=== PATIENT | male | born 1980 | race Caucasian/White ===

== ENCOUNTER 2017-04-29 21:52 | Emergency (ER) | payer OTHER ==
[2017-04-29 22:07] VITALS: RESP 18
[2017-04-29] MEDS ORDERED: DIPH,PERTUS(ACELL)TETVAC-LF 0.5 ML VIAL IM ONE (22:22)
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
--- NOTE | 2017-04-29 22:48 | CT ---
EXAM: CT Head Without Intravenous Contrast CLINICAL HISTORY: Pain TECHNIQUE: Axial computed tomography images of the head/brain without intravenous contrast. CTDI is 60.3 mGy and DLP is 1126.5 mGy-cm. This CT exam was performed using one or more of the following dose reduction techniques: automated exposure control, adjustment of the mA and/or kV according to patient size, and/or use of iterative reconstruction technique. Coronal and sagittal reconstructions are performed. COMPARISON: No relevant prior studies available. FINDINGS: Brain: Unremarkable. No hemorrhage. No significant white matter disease. No edema. Ventricles: Unremarkable. No ventriculomegaly. Bones/joints: Comminuted fracture of comminuted bilateral nasal bone fracture, minimally displaced on the left. Soft tissues: Moderate amount of soft tissue swelling over bilateral maxilla, mixed with moderate amount of subcutaneous gas. Sinuses: Near complete opacification of visualized maxillary sinuses. Moderate amount of opacification of bilateral ethmoid air cells. Mastoid air cells: Unremarkable as visualized. No mastoid effusion. Orbits: Small amount of anterior left intraorbital gas. IMPRESSION: 1. No intracranial hemorrhage. 2. Comminuted fracture of comminuted bilateral nasal bone fracture, minimally displaced on the left. 3. Moderate amount of soft tissue swelling over bilateral maxilla, mixed with moderate amount of subcutaneous gas.
--- NOTE | 2017-04-29 22:57 | XR ---
EXAM: XR Mandible Complete, 4 or More Views CLINICAL HISTORY: Reason: Pain TECHNIQUE: Frontal, oblique and lateral views of the mandible. COMPARISON: No relevant prior studies available. FINDINGS: Dental: teeth are absent. Bones/joints: Suspect fracture of bilateral angles of the mandible. Soft tissues: Soft tissue emphysema over bilateral maxilla and left orbit are better seen on CT head from the same day. Sinuses: Opacification in bilateral maxillary sinuses. IMPRESSION: Suspect fracture of bilateral angles of the mandible. CT facial bones may help to further evaluate if clinically indicated.
--- NOTE | 2017-04-29 22:58 | XR ---
EXAM: XR Chest, 2 Views CLINICAL HISTORY: Reason: Pain TECHNIQUE: Frontal and lateral views of the chest. COMPARISON: No relevant prior studies available. FINDINGS: Lungs: Unremarkable. No consolidation. Pleural space: Unremarkable. No pneumothorax. Heart: Unremarkable. No cardiomegaly. Mediastinum: Unremarkable. Bones/joints: Mild anterior wedge compression defect of the lower thoracic levels without significant retropulsion or age indeterminate, likely chronic. IMPRESSION: Mild anterior wedge compression defect of the lower thoracic levels without significant retropulsion or age indeterminate, likely chronic.
[2017-04-29 23:10] VITALS: BP 150/95; PULSE 87; TEMP 98.9
[2017-04-29] MEDS ORDERED: HYDROcodone/APAP 5-325MG 1 EACH TAB PO STA (23:14)
--- NOTE | 2017-04-30 00:01 | CT ---
EXAM: CT Maxillofacial Without Intravenous Contrast CLINICAL HISTORY: Reason: Pain TECHNIQUE: Axial computed tomography images of the face without intravenous contrast. CTDI is 30.6 mGy and DLP is 569.1 mGy-cm. This CT exam was performed using one or more of the following dose reduction techniques: automated exposure control, adjustment of the mA and/or kV according to patient size, and/or use of iterative reconstruction technique. Coronal and sagittal reconstructions are performed COMPARISON: CT brain same date FINDINGS: Bones/joints: Comminuted fracture of bilateral nasal bone, medially displaced fracture. Fracture of the nasal bridge Nasal process of maxilla: Fractured and left laterally displaced Nasal Septum: Leftward deviation and fracture anteriorly Soft tissues: Small amount of subcutaneous air in the midline. Subcutaneous air bilaterally and about both orbits, right greater than left. Subcutaneous emphysema of the soft tissues over the nasal bridge Orbits: No hematoma within Retrobulbar fat Sinuses: Likely changes of maxillary antrostomy. There is subtotal opacification of both maxillary sinuses with severe circumferential nodular mucosal thickening. No air-fluid levels. Dental: missing all teeth IMPRESSION: 1. Mildly comminuted nasal bridge and nasal bone fracture with medial displacement of those fragments. The anterior aspect of the septum is fractured and mildly left lateral displaced. 2. Subcutaneous emphysema most likely related to trauma in a frontal, periorbital and preseptal distribution. 3. Postoperative changes of maxillary antrostomy versus severe degenerative change from chronic opacification of both maxillary sinuses. 4. Subtotal opacification of the ethmoid air cells. 5. No mandibular fracture as suspected on comparison facial radiographs from today
[2017-04-30] MEDS ORDERED: AMOXIC-POT CLAV 875-125MG 1 EACH TAB PO STA (00:04)
== END 2017-04-30 00:19 | disposition home or self-care (01) ==
LOC: EC 21:52
DX: S02.2XXA Fracture of nasal bones, initial encounter for closed fracture (principal); S01.81XA Laceration without foreign body of other part of head, initial encounter; S20.219A Contusion of unspecified front wall of thorax, initial encounter; S50.02XA Contusion of left elbow, initial encounter; F17.200 Nicotine dependence, unspecified, uncomplicated; Z88.5 Allergy status to narcotic agent; Z23 Encounter for immunization; Y04.0XXA Assault by unarmed brawl or fight, initial encounter
CPT/HCPCS: 70110; 70450; 70486; 71020; 90471; 90715; 99284

== ENCOUNTER 2017-05-15 18:44 | Emergency (ER) | payer OTHER ==
[2017-05-15 19:13] VITALS: RESP 18
[2017-05-15] MEDS ORDERED: IPRATROPIUM-ALBUTEROL 3 ML NEB INHALATION STA (20:10)
--- NOTE | 2017-05-15 20:11 | ED ---
General Adult HPI - General Chief complaint: Shortness of Breath Stated complaint: chest pain, tiffanie Time Seen by Provider: 05/15/17 19:42 Source: patient, RN notes reviewed Mode of arrival: ambulatory Limitations: no limitations - History of Present Illness Initial comments: Patient is a 36-year-old male presents emergency room for evaluation of cough and shortness of breath. Patient states symptoms began yesterday. Patient states when having a dry cough and is feeling short of breath. Patient does admit that he smokes a pack per day. Patient states been having on and off fevers. Patient states having nasal congestion. Patient denies throat pain or ear pain. Patient also states having chest pain from cough. Patient states chest pain is worse after he is walking or coughing. Patient denies abdominal pain. Patient denies nausea or vomiting. Patient denies headache or dizziness. - Related Data Home Medications Medication Instructions Recorded Confirmed Albuterol Inhaler [Ventolin Hfa 2 puff INHALATION ONCE PRN 05/15/17 05/15/17 Inhaler] Albuterol Nebulized [Ventolin 2.5 mg INHALATION ONCE PRN 05/15/17 05/15/17 Nebulized] Previous Rx's Medication Instructions Recorded Albuterol Nebulized [Ventolin 2.5 mg INHALATION Q6H PRN #30 nebu 05/15/17 Nebulized] Azithromycin [Zithromax Z-pack] 250 mg PO DIRECTED #6 tab 05/15/17 predniSONE 50 mg PO DAILY #4 tab 05/15/17 Allergies Allergy/AdvReac Type Severity Reaction Status Date / Time codeine Allergy Rash/Hives Verified 05/15/17 19:59 Review of Systems ROS Statement: Those systems with pertinent positive or pertinent negative responses have been documented in the HPI. ROS Other: All systems not noted in ROS Statement are negative. Past Medical History Past Medical History: Hypertension History of Any Multi-Drug Resistant Organisms: MRSA Date of last positivie culture/infection: 2013 MDRO Source:: right buttock Additional Past Surgical History / Comment(s): abscess on left buttock Past Psychological History: No Psychological Hx Reported Smoking Status: Current every day smoker Past Alcohol Use History: None Reported Past Drug Use History: None Reported General Exam - General Exam Comments Initial Comments: sitting in exam room, no acute distress. Limitations: no limitations General appearance: alert, in no apparent distress Head exam: Present: atraumatic, normocephalic, normal inspection Eye exam: Present: normal appearance ENT exam: Present: normal exam Neck exam: Present: normal inspection Respiratory exam: Present: normal lung sounds bilaterally. Absent: respiratory distress Cardiovascular Exam: Present: normal rhythm, tachycardia, normal heart sounds GI/Abdominal exam: Present: soft, normal bowel sounds. Absent: distended, tenderness, guarding, rebound, rigid Extremities exam: Present: normal inspection Back exam: Present: normal inspection Neurological exam: Present: alert, oriented X3, CN II-XII intact, normal gait Psychiatric exam: Present: normal affect, normal mood Skin exam: Present: warm, dry, intact, normal color. Absent: rash Course Vital Signs 05/15/17 05/15/17 05/15/17 19:10 19:57 20:26 Temperature 96.5 F L Pulse Rate 105 H 81 Respiratory 18 18 Rate Blood Pressure 135/82 O2 Sat by Pulse 98 Oximetry 05/15/17 05/15/17 05/15/17 20:35 21:29 22:10 Temperature 98.0 F Pulse Rate 104 H 90 82 Respiratory 18 Rate Blood Pressure 161/93 125/69 O2 Sat by Pulse 100 98 Oximetry 05/15/17 23:06 Temperature 98.4 F Pulse Rate 75 Respiratory 18 Rate Blood Pressure 128/85 O2 Sat by Pulse 99 Oximetry Medical Decision Making - Medical Decision Making patient is a 36-year-old male since emergency room for evaluation of cough. Chest x-ray shows no acute findings. Lab work shows no concerning findings. Patient does smoke about a pack per day. Patient be treated for bronchitis. Return parameters discussed. Case discussed Dr. Jain. - Lab Data Result diagrams: 05/15/17 20:20 05/15/17 20:20 Lab Results 05/15/17 05/15/17 05/15/17 Range/Units 20:20 20:20 20:20 WBC 9.1 (3.8-10.6) k/uL RBC 5.56 (4.30-5.90) m/uL Hgb 16.5 (13.0-17.5) gm/dL Hct 47.2 (39.0-53.0) % MCV 84.9 (80.0-100.0) fL MCH 29.7 (25.0-35.0) pg MCHC 35.0 (31.0-37.0) g/dL RDW 15.4 (11.5-15.5) % Plt Count 184 (150-450) k/uL Neutrophils % 67 % Lymphocytes % 23 % Monocytes % 6 % Eosinophils % 1 % Basophils % 0 % Neutrophils # 6.1 (1.3-7.7) k/uL Lymphocytes # 2.1 (1.0-4.8) k/uL Monocytes # 0.6 (0-1.0) k/uL Eosinophils # 0.1 (0-0.7) k/uL Basophils # 0.0 (0-0.2) k/uL PT (9.0-12.0) sec INR (<1.2) APTT (22.0-30.0) sec D-Dimer (<0.60) mg/L FEU Sodium 143 (137-145) mmol/L Potassium 3.3 L (3.5-5.1) mmol/L Chloride 106 (98-107) mmol/L Carbon Dioxide 24 (22-30) mmol/L Anion Gap 13 mmol/L BUN 15 (9-20) mg/dL Creatinine 0.80 (0.66-1.25) mg/dL Est GFR (MDRD) Af Amer >60 (>60 ml/min/1.73 sqM) Est GFR (MDRD) Non-Af >60 (>60 ml/min/1.73 sqM) Glucose 98 (74-99) mg/dL Plasma Lactic Acid Parth (0.7-2.0) mmol/L Calcium 9.7 (8.4-10.2) mg/dL Total Bilirubin 1.6 H (0.2-1.3) mg/dL AST 23 (17-59) U/L ALT 39 (21-72) U/L Alkaline Phosphatase 96 (38-126) U/L Total Creatine Kinase 81 (55-170) U/L CK-MB (CK-2) 0.8 (0.0-2.4) ng/mL CK-MB (CK-2) Rel Index 1.0 Troponin I <0.012 (0.000-0.034) ng/mL Total Protein 7.5 (6.3-8.2) g/dL Albumin 4.6 (3.5-5.0) g/dL Urine Color Urine Appearance (Clear) Urine pH (5.0-8.0) Ur Specific [place] (1.001-1.035) Urine Protein (Negative) Urine Glucose (UA) (Negative) Urine Ketones (Negative) Urine Blood (Negative) Urine Nitrite (Negative) Urine Bilirubin (Negative) Urine Urobilinogen (<2.0) mg/dL Ur Leukocyte Esterase (Negative) Urine RBC (0-5) /hpf Urine WBC (0-5) /hpf Ur Squamous Epith Cells (0-4) /hpf Urine Bacteria (None) /hpf Urine Mucus (None) /hpf 05/15/17 05/15/17 05/15/17 Range/Units 20:20 20:20 20:20 WBC (3.8-10.6) k/uL RBC (4.30-5.90) m/uL Hgb (13.0-17.5) gm/dL Hct (39.0-53.0) % MCV (80.0-100.0) fL MCH (25.0-35.0) pg MCHC (31.0-37.0) g/dL RDW (11.5-15.5) % Plt Count (150-450) k/uL Neutrophils % % Lymphocytes % % Monocytes % % Eosinophils % % Basophils % % Neutrophils # (1.3-7.7) k/uL Lymphocytes # (1.0-4.8) k/uL Monocytes # (0-1.0) k/uL Eosinophils # (0-0.7) k/uL Basophils # (0-0.2) k/uL PT 11.3 (9.0-12.0) sec INR 1.1 (<1.2) APTT 23.3 (22.0-30.0) sec D-Dimer 0.20 (<0.60) mg/L FEU Sodium (137-145) mmol/L Potassium (3.5-5.1) mmol/L Chloride (98-107) mmol/L Carbon Dioxide (22-30) mmol/L Anion Gap mmol/L BUN (9-20) mg/dL Creatinine (0.66-1.25) mg/dL Est GFR (MDRD) Af Amer (>60 ml/min/1.73 sqM) Est GFR (MDRD) Non-Af (>60 ml/min/1.73 sqM) Glucose (74-99) mg/dL Plasma Lactic Acid Parth 1.7 (0.7-2.0) mmol/L Calcium (8.4-10.2) mg/dL Total Bilirubin (0.2-1.3) mg/dL AST (17-59) U/L ALT (21-72) U/L Alkaline Phosphatase (38-126) U/L Total Creatine Kinase (55-170) U/L CK-MB (CK-2) (0.0-2.4) ng/mL CK-MB (CK-2) Rel Index Troponin I (0.000-0.034) ng/mL Total Protein (6.3-8.2) g/dL Albumin (3.5-5.0) g/dL Urine Color Urine Appearance (Clear) Urine pH (5.0-8.0) Ur Specific [place] (1.001-1.035) Urine Protein (Negative) Urine Glucose (UA) (Negative) Urine Ketones (Negative) Urine Blood (Negative) Urine Nitrite (Negative) Urine Bilirubin (Negative) Urine Urobilinogen (<2.0) mg/dL Ur Leukocyte Esterase (Negative) Urine RBC (0-5) /hpf Urine WBC (0-5) /hpf Ur Squamous Epith Cells (0-4) /hpf Urine Bacteria (None) /hpf Urine Mucus (None) /hpf 05/15/17 Range/Units 21:45 WBC (3.8-10.6) k/uL RBC (4.30-5.90) m/uL Hgb (13.0-17.5) gm/dL Hct (39.0-53.0) % MCV (80.0-100.0) fL MCH (25.0-35.0) pg MCHC (31.0-37.0) g/dL RDW (11.5-15.5) % Plt Count (150-450) k/uL Neutrophils % % Lymphocytes % % Monocytes % % Eosinophils % % Basophils % % Neutrophils # (1.3-7.7) k/uL Lymphocytes # (1.0-4.8) k/uL Monocytes # (0-1.0) k/uL Eosinophils # (0-0.7) k/uL Basophils # (0-0.2) k/uL PT (9.0-12.0) sec INR (<1.2) APTT (22.0-30.0) sec D-Dimer (<0.60) mg/L FEU Sodium (137-145) mmol/L Potassium (3.5-5.1) mmol/L Chloride (98-107) mmol/L Carbon Dioxide (22-30) mmol/L Anion Gap mmol/L BUN (9-20) mg/dL Creatinine (0.66-1.25) mg/dL Est GFR (MDRD) Af Amer (>60 ml/min/1.73 sqM) Est GFR (MDRD) Non-Af (>60 ml/min/1.73 sqM) Glucose (74-99) mg/dL Plasma Lactic Acid Parth (0.7-2.0) mmol/L Calcium (8.4-10.2) mg/dL Total Bilirubin (0.2-1.3) mg/dL AST (17-59) U/L ALT (21-72) U/L Alkaline Phosphatase (38-126) U/L Total Creatine Kinase (55-170) U/L CK-MB (CK-2) (0.0-2.4) ng/mL CK-MB (CK-2) Rel Index Troponin I (0.000-0.034) ng/mL Total Protein (6.3-8.2) g/dL Albumin (3.5-5.0) g/dL Urine Color Yellow Urine Appearance Clear (Clear) Urine pH 6.5 (5.0-8.0) Ur Specific [place] 1.025 (1.001-1.035) Urine Protein 1+ H (Negative) Urine Glucose (UA) Negative (Negative) Urine Ketones Negative (Negative) Urine Blood Negative (Negative) Urine Nitrite Negative (Negative) Urine Bilirubin Negative (Negative) Urine Urobilinogen 2.0 (<2.0) mg/dL Ur Leukocyte Esterase Negative (Negative) Urine RBC 2 (0-5) /hpf Urine WBC 2 (0-5) /hpf Ur Squamous Epith Cells 1 (0-4) /hpf Urine Bacteria Rare H (None) /hpf Urine Mucus Many H (None) /hpf - Radiology Data Radiology results: report reviewed, image reviewed Disposition Clinical Impression: Bronchitis Disposition: HOME SELF-CARE Condition: Good Instructions: How to Stop Smoking (ED), Acute Bronchitis (ED) Additional Instructions: Take antibiotics and prednisone as directed. Please follow up with primary care provider in 1-2 days. If any new symptom arises or symptoms worsen, return to ER as soon as possible. Prescriptions: Albuterol Nebulized [Ventolin Nebulized] 2.5 mg INHALATION Q6H PRN #30 nebu PRN Reason: Shortness Of Breath Azithromycin [Zithromax Z-pack] 250 mg PO DIRECTED #6 tab predniSONE 50 mg PO DAILY #4 tab Referrals: Elias Cherry MD [Primary Care Provider] - 1-2 days Time of Disposition: 22:28
[2017-05-15] MEDS: SODIUM CHLORIDE 0.9% 500 ML IV SCH ×2 (20:37→21:00)
[2017-05-15 20:38] LABS: Basophils % (A) 0 %; CH 30.8; CHCM 36.4; Eosinophils # (A) 0.1 k/uL (0-0.7); Eosinophils % (A) 1 %; HCT 47.2 % (39.0-53.0); HDW 2.97; HGB 16.5 gm/dL (13.0-17.5); Luc % (Auto) 2; Lymphocytes # (A) 2.1 k/uL (1.0-4.8); Lymphocytes % (A) 23 %; MCH 29.7 pg (25.0-35.0); MCV 84.9 fL (80.0-100.0); Mean Platelet Volume 7.9; Monocytes # (A) 0.6 k/uL (0-1.0); Monocytes % (A) 6 %; Neutrophils # (A) 6.1 k/uL (1.3-7.7); Neutrophils % (A) 67 %; RBC 5.56 m/uL (4.30-5.90); RDW 15.4 % (11.5-15.5); WBC 9.1 k/uL (3.8-10.6); WBC (Perox) 8.88
[2017-05-15 20:46] LABS: Creatine Kinase 81 U/L (55-170)
[2017-05-15 20:48] LABS: ALT 39 U/L (21-72); AST 23 U/L (17-59); Alkaline Phosphatase 96 U/L (38-126); Anion Gap 13 mmol/L; Blood Urea Nitrogen 15 mg/dL (9-20); Calcium 9.7 mg/dL (8.4-10.2); Carbon Dioxide 24 mmol/L (22-30); Chloride 106 mmol/L (98-107); Glucose 98 mg/dL (74-99); Non-African American GFR(MDRD) >60 (>60 ml/min/1.73 sqM); Potassium 3.3 mmol/L (3.5-5.1); Sodium 143 mmol/L (137-145); Total Bilirubin 1.6 mg/dL (0.2-1.3); Total Protein 7.5 g/dL (6.3-8.2)
[2017-05-15 20:49] LABS: INR 1.1 (<1.2); Partial Thromboplastin Time 23.3 sec (22.0-30.0); Prothrombin Time 11.3 sec (9.0-12.0)
[2017-05-15 20:59] LABS: Creatine Kinase MB 0.8 ng/mL (0.0-2.4); Troponin I <0.012 ng/mL (0.000-0.034)
--- NOTE | 2017-05-15 20:59 | XR ---
EXAMINATION TYPE: XR chest 2V DATE OF EXAM: 05/15/2017 COMPARISON: Prior chest x-ray 04/29/2017 HISTORY: Fever, cough, difficulty breathing TECHNIQUE: Frontal and lateral views of the chest are obtained. FINDINGS: There is no focal air space opacity, pleural effusion, or pneumothorax seen. The cardiac silhouette size is within normal limits. There are overlying cardiac leads. The osseous structures a re intact. IMPRESSION: No acute cardiopulmonary process.
[2017-05-15] MEDS ORDERED: POTASSIUM CHLORIDE ER 20 MEQ TAB.ER PO STA (21:39)
[2017-05-15 22:03] LABS: Appearance,Urine Clear (Clear); Bacteria,Urine Rare /hpf; Bilirubin,Urine Negative (Negative); Glucose,Urine (UA) Negative (Negative); Ketones,Urine Negative (Negative); Leukocyte Esterase,Urine Negative (Negative); Mucus,Urine Many /hpf; Nitrite,Urine Negative (Negative); PH, Urine 6.5 (5.0-8.0); Particle Count 13824; Protein,Urine 1+ (Negative); RBC,Urine 2 /hpf (0-5); Specific Gravity,Urine 1.025 (1.001-1.035); Squamous Epithelial Cell,Urine 1 /hpf (0-4); UA Billing (MACRO vs. MICRO) MICRO; WBC,Urine 2 /hpf (0-5)
[2017-05-15] MEDS ORDERED: predniSONE 50 MG TAB PO STA (22:40)
[2017-05-15 23:07] VITALS: BP 128/85; PULSE 75; TEMP 98.4
== END 2017-05-15 23:07 | disposition home or self-care (01) ==
LOC: EC 18:44
DX: J40 Bronchitis, not specified as acute or chronic (principal); R00.0 Tachycardia, unspecified; F17.200 Nicotine dependence, unspecified, uncomplicated; Z88.5 Allergy status to narcotic agent
CPT/HCPCS: 99285; 96360; 36415; 94640; 93005; 85379; 80053; 82550; 82553; 83605; 84484; 85025; 85610; 85730; 81001; 87040; 87086; 71020; J7512

== ENCOUNTER 2017-07-13 18:57 | Emergency (ER) | payer OTHER ==
[2017-07-13 19:05] VITALS: TEMP 98.2
[2017-07-13] MEDS ORDERED: methylPREDNISolone SOD SUCCI 125 MG/2 ML VIAL IV STA (19:15)
[2017-07-13] MEDS ORDERED: diphenhydrAMINE 50 MG/ML 1 ML VIAL IVP STA (19:15)
[2017-07-13] MEDS ORDERED: SODIUM CHLORIDE 0.9% 1,000 ML IV ONE (19:15)
[2017-07-13] MEDS ORDERED: FAMOTIDINE 20 MG/2 ML VIAL IV STA (19:15)
[2017-07-13 20:04] VITALS: RESP 16
--- NOTE | 2017-07-13 20:35 | ED ---
Allergic Reaction HPI - General Chief complaint: Allergic Reaction Stated complaint: allergic reaction to tylenol 4 Time Seen by Provider: 07/13/17 19:10 Source: patient Mode of arrival: ambulatory Limitations: no limitations - History of Present Illness Initial Comments: 36-year-old male with past medical history of codeine ALLERGY present for evaluation of ALLERGIC reaction. He states that he has been having left wrist pain for some time now and was out of his regular medications. He had some Tylenol #4 a home and when he took them he immediately started getting a rash that was pruritic. He states is consistent with his previous ALLERGIES to codeine but he did not know that codeine was in Tylenol #4. Eyes any chest tightness, difficulty swallowing, wheezing/stridor, cough, sore throat. - Related Data Home Medications Medication Instructions Recorded Confirmed Vitamin B Complex 1 cap PO DAILY 07/13/17 07/13/17 Previous Rx's Medication Instructions Recorded Famotidine [Pepcid] 40 mg PO HS #20 tab 07/13/17 HYDROcodone/APAP 5-325MG [[place] 2 tab PO Q6HR #30 tab 07/13/17 5-325] predniSONE 50 mg PO DAILY #5 tablet 07/13/17 Allergies Allergy/AdvReac Type Severity Reaction Status Date / Time codeine Allergy Rash/Hives Verified 07/13/17 19:41 Review of Systems ROS Statement: Those systems with pertinent positive or pertinent negative responses have been documented in the HPI. ROS Other: All systems not noted in ROS Statement are negative. Constitutional: Denies: fever, chills Eyes: Denies: eye pain, eye discharge, vision change ENT: Denies: ear pain, throat pain, congestion Respiratory: Denies: cough, dyspnea, wheezes, stridor Cardiovascular: Denies: chest pain, palpitations Endocrine: Denies: fatigue, heat or cold intolerance Gastrointestinal: Denies: abdominal pain, nausea, vomiting Genitourinary: Denies: urgency, dysuria Musculoskeletal: Denies: back pain, joint swelling Skin: Reports: rash, pruritus Neurological: Denies: headache, weakness Psychiatric: Denies: anxiety, depression Hematological/Lymphatic: Denies: easy bleeding, easy bruising Past Medical History Past Medical History: Hypertension History of Any Multi-Drug Resistant Organisms: MRSA Date of last positivie culture/infection: 2013 MDRO Source:: right buttock Additional Past Surgical History / Comment(s): abscess on left buttock Past Psychological History: No Psychological Hx Reported Smoking Status: Current every day smoker Past Alcohol Use History: None Reported Past Drug Use History: None Reported General Exam Limitations: no limitations General appearance: alert, in distress, other (Mild distress due to pruritus) Head exam: Present: atraumatic, normocephalic, normal inspection Eye exam: Present: normal appearance, PERRL, EOMI. Absent: scleral icterus, conjunctival injection, periorbital swelling ENT exam: Present: normal exam, mucous membranes moist Neck exam: Present: normal inspection. Absent: tenderness, meningismus, lymphadenopathy Respiratory exam: Present: normal lung sounds bilaterally. Absent: respiratory distress, wheezes, rales, rhonchi, stridor Cardiovascular Exam: Present: regular rate, normal rhythm, normal heart sounds. Absent: systolic murmur, diastolic murmur, rubs, gallop, clicks GI/Abdominal exam: Present: soft, normal bowel sounds. Absent: distended, tenderness, guarding, rebound, rigid Rectal exam: Present: deferred Extremities exam: Present: normal inspection, full ROM, normal capillary refill. Absent: tenderness, pedal edema, joint swelling, calf tenderness Back exam: Present: normal inspection Neurological exam: Present: alert, oriented X3, CN II-XII intact Psychiatric exam: Present: normal affect, normal mood Skin exam: Present: warm, dry, intact, rash, urticaria Course Vital Signs 07/13/17 07/13/17 07/13/17 19:01 20:03 20:46 Temperature 98.2 F 98.2 F Pulse Rate 110 H 93 77 Respiratory 18 16 16 Rate Blood Pressure 135/90 129/80 118/71 O2 Sat by Pulse 98 100 96 Oximetry Medical Decision Making - Medical Decision Making 36-year-old male presented for evaluation of urticaria and pruritic rash that started after taking Tylenol No. 4. He states that he has an ALLERGY to codeine and that he had been having severe left wrist pain for some time and ran out of his [place]. Medially after taking Tylenol No. 4 his symptoms started. All complaints are cutaneous related and he denies any sore throat, cough, difficulty breathing, stridor. Patient provided with Benadryl, Axid, and slight Medrol and on reevaluation had complete resolution of all symptoms. On repeat physical examination he did have positive Tinel's sign and given his history there is concern for carpal tunnel. He was informed of this and advised to follow up with his PCP and to get an ortho referral. He was further given instructions for return to this ED. The patient acknowledged an understanding of this information and agreed with this plan of care. Disposition Clinical Impression: Allergic reaction, Carpal tunnel syndrome of left wrist Disposition: HOME SELF-CARE Condition: Stable Instructions: Anaphylaxis (ED) Additional Instructions: Please use medication as discussed. Please follow up with family doctor if symptoms have not improved over the next two days. Please return to the emergency room if your symptoms increase or worsen or for any other concerns. Prescriptions: Famotidine [Pepcid] 40 mg PO HS #20 tab HYDROcodone/APAP 5-325MG [[place] 5-325] 2 tab PO Q6HR #30 tab predniSONE 50 mg PO DAILY #5 tablet Referrals: Elias Cherry MD [Primary Care Provider] - 1-2 days Time of Disposition: 20:34
[2017-07-13 20:47] VITALS: BP 118/71; PULSE 77
== END 2017-07-13 20:46 | disposition home or self-care (01) ==
LOC: EC 18:57
DX: L29.8 Other pruritus (principal); T39.1X5A Adverse effect of 4-Aminophenol derivatives, initial encounter; G56.02 Carpal tunnel syndrome, left upper limb; F17.200 Nicotine dependence, unspecified, uncomplicated; Z88.5 Allergy status to narcotic agent; Z79.899 Other long term (current) drug therapy; Y92.009 Unspecified place in unspecified non-institutional (private) residence as the place of occurrence of the external cause
CPT/HCPCS: 99283; 96374; 96375 ×2; 96361; J1200; J2930

== ENCOUNTER 2017-08-24 17:01 | Inpatient (IN) | payer OTHER ==
[2017-08-24] MEDS ORDERED: ALBUTEROL NEBULIZED 2.5 MG/3 ML INHALATION STA (17:08)
[2017-08-24] MEDS ORDERED: IPRATROPIUM 0.5 MG/2.5 ML NEBU INHALATION STA (17:08)
[2017-08-24] MEDS ORDERED: methylPREDNISolone SOD SUCCI 125 MG/2 ML VIAL IV STA (17:08)
[2017-08-24] MEDS ORDERED: LORazepam 2 MG/ML INJ IV STA ×3 (17:09→20:01)
--- NOTE | 2017-08-24 17:15 | ED ---
SOB HPI - General Chief Complaint: Shortness of Breath Stated Complaint: Asthma attack Time Seen by Provider: 08/24/17 17:01 Source: patient, RN notes reviewed Mode of arrival: ambulatory Limitations: no limitations - History of Present Illness Initial Comments: This is a 37-year-old male was a smoker but currently does not have any history of asthma who became short of breath earlier today and EMS was finally called. He is found to be very dyspneic and wheezing he did respond to updraft treatments he did get epinephrine subcutaneously. IV steroids are not available for administration. Is brought to the emergency department for further evaluation. He remained dyspneic. Anxious complains of no chest pain or shortness of breath. He also complains of back spasms. He apparently has a history of heroin abuse but has not used for a long time. Denies any recent drugs or alcohol. He states he was working on a roof today doing some repairs. No fall or trauma is reported. The fevers chills sweats or other symptoms MD Complaint: shortness of breath - Related Data Home Medications Medication Instructions Recorded Confirmed Vitamin B Complex 1 cap PO DAILY 07/13/17 08/24/17 Dextroamphetamine/Amphetamine 20 mg PO BID 08/24/17 08/24/17 [Adderall] FLUoxetine HCL [PROzac] 40 mg PO DAILY 08/24/17 08/24/17 Ibuprofen [Motrin] 800 mg PO QID PRN 08/24/17 08/24/17 Lisinopril-Hctz 20-12.5 mg 1 tab PO DAILY 08/24/17 08/24/17 [Zestoretic 20-12.5] buPROPion HCL [Wellbutrin SR] 150 mg PO BID 08/24/17 08/24/17 traMADol HCL [Ultram] 50 mg PO QID PRN 08/24/17 08/24/17 Allergies Allergy/AdvReac Type Severity Reaction Status Date / Time codeine Allergy Rash/Hives Verified 08/24/17 17:16 Review of Systems ROS Statement: Those systems with pertinent positive or pertinent negative responses have been documented in the HPI. ROS Other: All systems not noted in ROS Statement are negative. Past Medical History Past Medical History: Hypertension History of Any Multi-Drug Resistant Organisms: MRSA Date of last positivie culture/infection: 2013 MDRO Source:: right buttock Additional Past Surgical History / Comment(s): abscess on left buttock Past Psychological History: ADD/ADHD, Anxiety, Depression Smoking Status: Current every day smoker Past Alcohol Use History: None Reported Past Drug Use History: None Reported General Exam - General Exam Comments Initial Comments: This is a well-developed well-nourished awake alert. Anxious appearing male he is hyperventilating. Limitations: no limitations General appearance: alert, anxious, in distress Head exam: Present: atraumatic, normocephalic, normal inspection Eye exam: Present: normal appearance, PERRL, EOMI. Absent: scleral icterus, conjunctival injection, periorbital swelling ENT exam: Present: normal exam, mucous membranes moist Neck exam: Present: normal inspection. Absent: tenderness, meningismus, lymphadenopathy Respiratory exam: Present: decreased breath sounds, other (The patient was noted be hyperventilating). Absent: respiratory distress, wheezes, rales, rhonchi, stridor Cardiovascular Exam: Present: normal rhythm, tachycardia, normal heart sounds. Absent: systolic murmur, diastolic murmur, rubs, gallop, clicks GI/Abdominal exam: Present: soft, normal bowel sounds. Absent: distended, tenderness, guarding, rebound, rigid Extremities exam: Present: normal inspection, full ROM, normal capillary refill. Absent: tenderness, pedal edema, joint swelling, calf tenderness Back exam: Present: normal inspection Neurological exam: Present: alert, oriented X3, CN II-XII intact Psychiatric exam: Present: anxious Skin exam: Present: warm, intact, normal color, diaphoretic. Absent: rash Course Vital Signs 08/24/17 08/24/17 08/24/17 17:04 17:08 17:10 Temperature Pulse Rate 125 H 125 H Respiratory 46 H 46 H Rate Blood Pressure 125/61 O2 Sat by Pulse 100 Oximetry 08/24/17 08/24/17 08/24/17 17:26 17:56 17:59 Temperature Pulse Rate 120 H 118 H 139 H Respiratory 39 H Rate Blood Pressure 158/101 O2 Sat by Pulse 98 Oximetry 08/24/17 08/24/17 18:57 19:24 Temperature 97.2 F L Pulse Rate 134 H Respiratory 36 H Rate Blood Pressure 113/55 O2 Sat by Pulse 99 Oximetry - Reevaluation(s) Reevaluation #1: 08/24/17 17:17 Further information the patient was using a tank car cleaner in the bathroom today was exposed to fumes likely ammonium chloride. Sweats when the difficulty breathing started. 08/24/17 17:22 Name of the clinic and was [facility] Reevaluation #2: 08/24/17 21:07 I did reevaluate the patient multiple occasions patient did require sedation due to his bizarre abnormal behavior and repeat out IVs. He was deemed to be a threat to himself up. He did receive IM ketamine which I did administer his left thigh. Later Geodon and Ativan was given. Reevaluation #3: 08/24/17 21:43 Patient was noted be hypotensive in the given a fluid bolus. In spite of the patient's objections a Brady catheter was deemed to be necessary for adequate eyes and nose due to the rhabdomyolysis and his questionable fluid status. Medical Decision Making - Medical Decision Making I did discuss findings with Dr. Junior as well as Dr. Merritt. Patient will be admitted IV fluids be continued. Is unclear what the patient ingested if anything question of [place] is a patient seem to demonstrate the classic signs. The patient upon admission gave multiple different stories as to what precipitated his arriving in the emergency department. He was very evasive with answers initially. - Lab Data Result diagrams: 08/24/17 17:14 08/24/17 17:14 Lab Results 08/24/17 08/24/17 08/24/17 Range/Units 17:14 17:14 17:14 WBC 20.3 H (3.8-10.6) k/uL RBC 5.00 (4.30-5.90) m/uL Hgb 15.2 (13.0-17.5) gm/dL Hct 41.8 (39.0-53.0) % MCV 83.7 (80.0-100.0) fL MCH 30.3 (25.0-35.0) pg MCHC 36.2 (31.0-37.0) g/dL RDW 13.8 (11.5-15.5) % Plt Count 234 (150-450) k/uL Neutrophils % 73 % Lymphocytes % 16 % Monocytes % 9 % Eosinophils % 1 % Basophils % 0 % Neutrophils # 14.8 H (1.3-7.7) k/uL Lymphocytes # 3.2 (1.0-4.8) k/uL Monocytes # 1.7 H (0-1.0) k/uL Eosinophils # 0.1 (0-0.7) k/uL Basophils # 0.0 (0-0.2) k/uL Hyperchromasia Slight PT (9.0-12.0) sec INR (<1.2) APTT (22.0-30.0) sec D-Dimer (<0.60) mg/L FEU Sodium 131 L (137-145) mmol/L Potassium 3.7 (3.5-5.1) mmol/L Chloride 95 L (98-107) mmol/L Carbon Dioxide 16 L (22-30) mmol/L Anion Gap 20 mmol/L BUN 33 H (9-20) mg/dL Creatinine 2.21 H (0.66-1.25) mg/dL Est GFR (MDRD) Af Amer 41 (>60 ml/min/1.73 sqM) Est GFR (MDRD) Non-Af 34 (>60 ml/min/1.73 sqM) Glucose 67 L (74-99) mg/dL Calcium 9.6 (8.4-10.2) mg/dL Magnesium 1.6 (1.6-2.3) mg/dL Total Bilirubin 3.3 H (0.2-1.3) mg/dL AST 89 H (17-59) U/L ALT 135 H (21-72) U/L Alkaline Phosphatase 104 (38-126) U/L Total Creatine Kinase 1405 H (55-170) U/L CK-MB (CK-2) 13.6 H* (0.0-2.4) ng/mL CK-MB (CK-2) Rel Index 1.0 Troponin I <0.012 (0.000-0.034) ng/mL NT-Pro-B Natriuret Pep pg/mL Total Protein 7.5 (6.3-8.2) g/dL Albumin 4.7 (3.5-5.0) g/dL 08/24/17 08/24/17 Range/Units 17:14 17:14 WBC (3.8-10.6) k/uL RBC (4.30-5.90) m/uL Hgb (13.0-17.5) gm/dL Hct (39.0-53.0) % MCV (80.0-100.0) fL MCH (25.0-35.0) pg MCHC (31.0-37.0) g/dL RDW (11.5-15.5) % Plt Count (150-450) k/uL Neutrophils % % Lymphocytes % % Monocytes % % Eosinophils % % Basophils % % Neutrophils # (1.3-7.7) k/uL Lymphocytes # (1.0-4.8) k/uL Monocytes # (0-1.0) k/uL Eosinophils # (0-0.7) k/uL Basophils # (0-0.2) k/uL Hyperchromasia PT 10.9 (9.0-12.0) sec INR 1.1 (<1.2) APTT 22.8 (22.0-30.0) sec D-Dimer <0.17 (<0.60) mg/L FEU Sodium (137-145) mmol/L Potassium (3.5-5.1) mmol/L Chloride (98-107) mmol/L Carbon Dioxide (22-30) mmol/L Anion Gap mmol/L BUN (9-20) mg/dL Creatinine (0.66-1.25) mg/dL Est GFR (MDRD) Af Amer (>60 ml/min/1.73 sqM) Est GFR (MDRD) Non-Af (>60 ml/min/1.73 sqM) Glucose (74-99) mg/dL Calcium (8.4-10.2) mg/dL Magnesium (1.6-2.3) mg/dL Total Bilirubin (0.2-1.3) mg/dL AST (17-59) U/L ALT (21-72) U/L Alkaline Phosphatase (38-126) U/L Total Creatine Kinase (55-170) U/L CK-MB (CK-2) (0.0-2.4) ng/mL CK-MB (CK-2) Rel Index Troponin I (0.000-0.034) ng/mL NT-Pro-B Natriuret Pep 35 pg/mL Total Protein (6.3-8.2) g/dL Albumin (3.5-5.0) g/dL - EKG Data -: EKG Interpreted by Me EKG shows normal: sinus rhythm (Heart rate 140 QRS 100 daily since QTC of 580 st-t wave changes.) - Radiology Data Radiology results: report reviewed (Review the imaging shows no acute findings x -ray and CAT scan were unremarkable.), image reviewed Critical Care Time Critical Care Time: Yes Critical Care Time: 45 minutes of critical care time which includes monitoring the initial EMS call discussed with paramedics history physical labs x-rays multiple re-evaluations the patient. Discussion with the admitting physician. Discussion with the electronics teacher. Documentation of the above. Disposition Clinical Impression: Rhabdomyolysis, Renal insufficiency syndrome, Dehydration, Encephalopathy acute , Hypotensive episode Disposition: ADMITTED IP TO THIS HOSP Condition: Serious Referrals: Elias Cherry MD [Primary Care Provider] - 1-2 days
[2017-08-24 17:29] LABS: Basophils % (A) 0 %; CH 31.4; CHCM 37.7; Eosinophils # (A) 0.1 k/uL (0-0.7); Eosinophils % (A) 1 %; HCT 41.8 % (39.0-53.0); HGB 15.2 gm/dL (13.0-17.5); Hyperchromasia Slight; Luc # (Auto) 0.44; Luc % (Auto) 2; Lymphocytes # (A) 3.2 k/uL (1.0-4.8); Lymphocytes % (A) 16 %; MCH 30.3 pg (25.0-35.0); MCHC 36.2 g/dL (31.0-37.0); MCV 83.7 fL (80.0-100.0); Mean Platelet Volume 7.6; Monocytes # (A) 1.7 k/uL (0-1.0); Monocytes % (A) 9 %; Neutrophils # (A) 14.8 k/uL (1.3-7.7); Neutrophils % (A) 73 %; RDW 13.8 % (11.5-15.5); WBC 20.3 k/uL (3.8-10.6); WBC (Perox) 20.12
[2017-08-24] MEDS ORDERED: KETOROLAC 30 MG/ML 1 ML VIAL IVP STA (17:44)
[2017-08-24 17:46] LABS: INR 1.1 (<1.2); Partial Thromboplastin Time 22.8 sec (22.0-30.0); Prothrombin Time 10.9 sec (9.0-12.0)
[2017-08-24 17:48] LABS: Calcium 9.6 mg/dL (8.4-10.2); Magnesium 1.6 mg/dL (1.6-2.3); Potassium 3.7 mmol/L (3.5-5.1); Total Bilirubin 3.3 mg/dL (0.2-1.3); Total Protein 7.5 g/dL (6.3-8.2)
[2017-08-24] MEDS ORDERED: diphenhydrAMINE 50 MG/ML 1 ML VIAL IVP STA (17:48)
--- NOTE | 2017-08-24 17:49 | XR ---
EXAMINATION TYPE: XR chest 1V portable DATE OF EXAM: 08/24/2017 Comparison: 05/15/2017 Clinical History: 37 year-old male shortness of breath, Dyspnea Findings: The cardiomediastinal silhouette, aorta, and pulmonary vasculature are within normal limits. Lungs and pleural spaces are clear. Impression: No acute cardiopulmonary process.
[2017-08-24 17:53] LABS: Creatine Kinase 1405 U/L (55-170)
[2017-08-24 18:06] LABS: Troponin I <0.012 ng/mL (0.000-0.034)
[2017-08-24 18:07] LABS: Creatine Kinase MB 13.6 ng/mL (0.0-2.4)
[2017-08-24] MEDS ORDERED: KETAMINE 50 MG/ML 10 ML VIAL IM ONE (18:30)
[2017-08-24] MEDS ORDERED: SODIUM CHLORIDE 0.9% 2,000 ML IV ONE (18:59)
[2017-08-24] MEDS ORDERED: ZIPRASIDONE 20 MG VIAL IM STA (20:01)
--- NOTE | 2017-08-24 20:01 | CT ---
EXAMINATION TYPE: CT brain wo con DATE OF EXAM: 08/24/2017 COMPARISON: 04/29/2017 HISTORY: 37-year-old male with pain, confusion, altered mental status. TECHNIQUE: Examination was done in axial plane without intravenous contrast. Coronal and sagittal r econstructions performed. CT DLP: 2133.20 mGycm Automated exposure control for dose reduction was used. FINDINGS: Patient motion degrading the exam. The patient was rescanned. There is no evidence of acute intracra nial hemorrhage, acute ischemic changes, mass, mass-effect, or extra-axial fluid collection. There i s no effacement of cerebral sulci or basal subarachnoid cisterns. There is no hydrocephalus. There is no midline shift. Lei-white matter distinction is preserved. Scattered mild mucosal thickening ethmoid air cells. Orbits and globes appear intact. Leftward nasal septal deviation. Mastoid air cells well pneumatized. IMPRESSION: No acute intracranial abnormality seen.
[2017-08-24] MEDS ORDERED: SODIUM CHLORIDE 0.9% 1,000 ML IV STA (21:31)
[2017-08-24] MEDS ORDERED: NALOXONE 0.4 MG/ML 1 ML VIAL IV PRN (21:46)
[2017-08-24] MEDS ORDERED: LORazepam 2 MG/ML INJ IV PRN ×2 (21:50→23:27)
[2017-08-24 21:53] LABS: Amorphous Sediment,Urine Occasional /hpf; Appearance,Urine Clear (Clear); Bacteria,Urine Occasional /hpf; Bilirubin,Urine Negative (Negative); Glucose,Urine (UA) Negative (Negative); Ketones,Urine 1+ (Negative); Leukocyte Esterase,Urine Negative (Negative); Mucus,Urine Occasional /hpf; Nitrite,Urine Negative (Negative); Particle Count 3812; Protein,Urine 1+ (Negative); RBC,Urine 1 /hpf (0-5); Specific Gravity,Urine 1.012 (1.001-1.035); Squamous Epithelial Cell,Urine <1 /hpf (0-4); UA Billing (MACRO vs. MICRO) MICRO; Urobilinogen,Urine <2.0 mg/dL (<2.0); WBC,Urine 8 /hpf (0-5)
[2017-08-24] MEDS: SODIUM CHLORIDE 0.9% 1,000 ML IV SCH (21:54)
[2017-08-24 22:36] LABS: Glucose,Whole Blood 128 mg/dL (75-99)
[2017-08-24] MEDS ORDERED: NOREPINEPHRIN 4 MG-0.9% NS PMX 4 MG/250 ML ML IV SCH (23:30)
[2017-08-25] MEDS: SODIUM CHLORIDE 0.9% 1,000 ML IV SCH ×2 (00:03→16:56)
[2017-08-25] MEDS ORDERED: NALOXONE 0.4 MG/ML 1 ML VIAL IV PRN (00:10)
[2017-08-25 02:22] VITALS: BMI 24.7
[2017-08-25 04:52] LABS: Basophils % (A) 0 %; CH 30.7; CHCM 35.6; Eosinophils # (A) 0.1 k/uL (0-0.7); Eosinophils % (A) 1 %; HDW 2.69; HGB 13.4 gm/dL (13.0-17.5); Luc # (Auto) 0.05; Luc % (Auto) 0; Lymphocytes # (A) 0.7 k/uL (1.0-4.8); Lymphocytes % (A) 6 %; MCH 30.4 pg (25.0-35.0); MCHC 35.1 g/dL (31.0-37.0); MCV 86.5 fL (80.0-100.0); Mean Platelet Volume 7.4; Monocytes # (A) 0.4 k/uL (0-1.0); Monocytes % (A) 4 %; Neutrophils # (A) 10.9 k/uL (1.3-7.7); Neutrophils % (A) 90 %; RBC 4.39 m/uL (4.30-5.90); RDW 13.7 % (11.5-15.5); WBC 12.1 k/uL (3.8-10.6); WBC (Perox) 12.68
[2017-08-25 05:13] LABS: ALT 118 U/L (21-72); AST 85 U/L (17-59); Alkaline Phosphatase 76 U/L (38-126); Anion Gap 11 mmol/L; Blood Urea Nitrogen 27 mg/dL (9-20); Calcium 8.5 mg/dL (8.4-10.2); Carbon Dioxide 20 mmol/L (22-30); Chloride 105 mmol/L (98-107); Glucose 144 mg/dL (74-99); Non-African American GFR(MDRD) >60 (>60 ml/min/1.73 sqM); Potassium 4.3 mmol/L (3.5-5.1); Sodium 136 mmol/L (137-145); Total Bilirubin 1.5 mg/dL (0.2-1.3); Total Protein 6.2 g/dL (6.3-8.2)
[2017-08-25 06:51] LABS: Appearance,Urine Clear (Clear); Bacteria,Urine Rare /hpf; Bilirubin,Urine Negative (Negative); Glucose,Urine (UA) Negative (Negative); Ketones,Urine 1+ (Negative); Leukocyte Esterase,Urine Small (Negative); Mucus,Urine Rare /hpf; Nitrite,Urine Negative (Negative); PH, Urine 5.5 (5.0-8.0); Particle Count 705; Protein,Urine Negative (Negative); RBC,Urine 1 /hpf (0-5); UA Billing (MACRO vs. MICRO) MICRO; Urobilinogen,Urine <2.0 mg/dL (<2.0); WBC,Urine 3 /hpf (0-5)
[2017-08-25] MEDS: HEPARIN SODIUM,PORCINE 5,000 UNIT/ML 1 ML VIAL SQ SCH ×2 (07:55→16:56)
[2017-08-25] MEDS ORDERED: FAMOTIDINE 20 MG/2 ML VIAL IV SCH (09:00)
[2017-08-25] MEDS ORDERED: ACETAMINOPHEN TAB 500 MG TAB PO PRN (10:59)
--- NOTE | 2017-08-25 13:53 | P.CNPUL ---
History of Present Illness Consult date: 08/25/17 Reason for consult: other (ICU management possible drug overdose, and acute rhabdomyolysis.) Chief complaint: Shortness of breath History of present illness: This is a 37-year-old white male smoker, history of cocaine abuse, patient is on Adderall for ADHD, history of hypertension, history of left buttock abscess and MRSA infection, smoker, patient presented to the ER yesterday because of acute shortness of breath and wheezing. EMS arrived to see the patient and he was in some sort of respiratory distress. Patient was given subcu epinephrine, brought into the ER, and he was quite anxious on presentation. Patient received treatment in the form of albuterol, however while in the ER, patient was noted to have intermittent episodes of agitations and bizarre abnormal behavior requiring ketamine, Ativan, and Geodon. Patient was also noted to have hypotensive episodes requiring fluid boluses, most likely the hypotension was related to the medications given. His labs on presentation showed abnormal BUN and creatinine, 33 and 2.21 respectively. Patient had leukocytosis with WBC count of 20.1. Blood sugar was low at 67, total CPK was as high as 2004, and his drug screen was positive for amphetamines and cocaine. Patient does take Adderall. According to him he denies using any other drugs including flakka, although he demonstrated enough clinical findings to suggest flakka ingestion. According to the patient, patient has been using some bathroom to clean her including perfumes of ammonium chloride exposure. He seems to blame his shortness of breath on the exposure to the bathroom duct cleaner/odo ban Review of Systems 14 point review of systems were obtained, patient has mostly symptoms of shortness of breath on presentation and abnormal bizarre behavior, presently the patient denies any specific complaints. No shortness of breath, no cough, no wheezing, no chest pain, no nausea, no vomiting, no abdominal pain. Remaining review of systems were negative. Past Medical History Past Medical History: Asthma, Hypertension History of Any Multi-Drug Resistant Organisms: MRSA Date of last positivie culture/infection: 2013 MDRO Source:: right buttock Additional Past Surgical History / Comment(s): abscess on left buttock Past Anesthesia/Blood Transfusion Reactions: No Reported Reaction Past Psychological History: ADD/ADHD, Anxiety, Depression Smoking Status: Current every day smoker Past Alcohol Use History: None Reported Past Drug Use History: Cocaine, Heroin, IV Drug Use, Marijuana, Methamphetamine , Opiates, Prescription Drug Abuse - Past Family History Mother Family Medical History: Hypertension Medications and Allergies Home Medications Medication Instructions Recorded Confirmed Type Vitamin B Complex 1 cap PO DAILY 07/13/17 08/24/17 History Dextroamphetamine/Amphetamine 20 mg PO BID 08/24/17 08/24/17 History [Adderall] FLUoxetine HCL [PROzac] 40 mg PO DAILY 08/24/17 08/24/17 History Ibuprofen [Motrin] 800 mg PO QID PRN 08/24/17 08/24/17 History Lisinopril-Hctz 20-12.5 mg 1 tab PO DAILY 08/24/17 08/24/17 History [Zestoretic 20-12.5] buPROPion HCL [Wellbutrin SR] 150 mg PO BID 08/24/17 08/24/17 History traMADol HCL [Ultram] 50 mg PO QID PRN 08/24/17 08/24/17 History Allergies Allergy/AdvReac Type Severity Reaction Status Date / Time codeine Allergy Rash/Hives Verified 08/24/17 17:16 Physical Exam Vitals: Vital Signs Temp Pulse Resp BP BP Pulse Ox 08/25/17 11:00 89 16 112/59 97 08/25/17 10:00 88 16 103/55 97 08/25/17 09:30 86 14 102/52 97 08/25/17 09:00 82 11 L 112/60 97 08/25/17 08:30 82 12 122/64 97 08/25/17 08:00 98.2 F 98 22 103/51 98 08/25/17 07:54 97 08/25/17 07:30 81 11 L 106/58 08/25/17 07:00 89 16 123/74 96 08/25/17 06:30 85 13 93/49 96 08/25/17 06:00 86 19 104/45 08/25/17 05:30 89 17 103/54 96 08/25/17 05:00 86 14 98/50 08/25/17 04:30 84 15 99/53 08/25/17 04:00 97.8 F 87 12 101/55 96 08/25/17 03:30 94 12 108/57 08/25/17 03:00 86 13 111/56 08/25/17 02:30 90 16 133/75 08/25/17 02:00 104 H 19 115/53 08/25/17 01:30 93 13 110/48 08/25/17 01:00 90 13 104/47 95 08/25/17 00:30 84 19 94/35 08/25/17 00:00 91 11 L 83/39 08/24/17 23:30 92 12 78/33 08/24/17 23:00 97 13 102/51 08/24/17 22:34 105 H 18 08/24/17 22:11 99 14 95/48 98 08/24/17 22:05 16 133/75 96 08/24/17 21:47 98.3 F 102 H 14 82/39 96 08/24/17 21:00 102 H 14 95/45 95 08/24/17 20:00 132 H 16 104/58 98 08/24/17 19:24 97.2 F L 08/24/17 18:57 134 H 36 H 113/55 99 08/24/17 17:59 139 H 39 H 158/101 98 08/24/17 17:56 118 H 08/24/17 17:26 120 H 08/24/17 17:10 125 H 08/24/17 17:08 46 H 08/24/17 17:04 125 H 46 H 125/61 100 Intake and Output 08/24/17 08/25/17 08/25/17 22:59 06:59 14:59 Intake Total 2305.954 900 Output Total 400 2185 495 Balance -400 120.954 405 Intake: IV 2200 900 Sodium Chloride 0.9% 1, 1200 900 000 ml @ 150 mls/hr IV . Q6H40M FAM Rx#:[id number] Sodium Chloride 0.9% 1, 1000 000 ml @ 999 mls/hr IV . Q1H1M STA Rx#:[id number] Intake, IV Titration 105.954 Amount Norepinephrin 4 mg-0.9% 105.954 Ns Pmx 4 mg In 250 ml @ Titrate IV .Q0M FAM Rx#: [id number] Output: Urine 400 2185 495 Uretheral (Brady) 400 Other: Voiding Method Indwelling Catheter Indwelling Catheter Weight 76 kg 76 kg Physical Exam: Revealed a 37-year-old white male in no distress. HEENT:[Neck is supple.] [No neck masses.] [No thyromegaly.] [No JVD.] Chest: [Clear throughout, no crackles, no rhonchi, no wheezes.] Cardiac Exam: [Normal S1 and S2, no S3 gallop, no murmur.] Abdomen: [Soft, nontender, no megaly, no rebound, no guarding, normal bowel sounds.] Extremities: [No clubbing, no edema, no cyanosis.] Neurological Exam: [No focal neurologic deficit.] Psychiatric: Normal mood, affect, normal mental status examination. Lymphatics: No lymphadenopathy. Musculoskeletal: No limitation in range of motion, no tenderness, Results - Laboratory Findings CBC and BMP: 08/25/17 04:18 08/25/17 04:18 PT/INR, D-dimer PT 10.9 sec (9.0-12.0) 08/24/17 17:14 INR 1.1 (<1.2) 08/24/17 17:14 D-Dimer <0.17 mg/L FEU (<0.60) 08/24/17 17:14 Abnormal lab findings: Abnormal Labs 08/24/17 08/24/17 08/24/17 17:14 17:14 17:14 WBC 20.3 H Hct Neutrophils # 14.8 H Lymphocytes # Monocytes # 1.7 H Sodium 131 L Chloride 95 L Carbon Dioxide 16 L BUN 33 H Creatinine 2.21 H Glucose 67 L POC Glucose (mg/dL) Total Bilirubin 3.3 H AST 89 H ALT 135 H Total Creatine Kinase 1405 H CK-MB (CK-2) 13.6 H* Total Protein Urine Protein Urine Ketones Urine Blood Ur Leukocyte Esterase Urine WBC Amorphous Sediment Urine Bacteria Hyaline Casts Urine Mucus Ur Amphetamines Screen Urine Cocaine Screen 08/24/17 08/24/17 08/25/17 21:22 22:34 04:18 WBC Hct Neutrophils # Lymphocytes # Monocytes # Sodium 136 L Chloride Carbon Dioxide 20 L BUN 27 H Creatinine Glucose 144 H POC Glucose (mg/dL) 128 H Total Bilirubin 1.5 H AST 85 H ALT 118 H Total Creatine Kinase CK-MB (CK-2) Total Protein 6.2 L Urine Protein 1+ H Urine Ketones 1+ H Urine Blood Small H Ur Leukocyte Esterase Urine WBC 8 H Amorphous Sediment Occasional H Urine Bacteria Occasional H Hyaline Casts 26 H Urine Mucus Occasional H Ur Amphetamines Screen Detected H Urine Cocaine Screen Detected H 08/25/17 08/25/17 08/25/17 04:18 04:18 05:00 WBC 12.1 H Hct 38.0 L Neutrophils # 10.9 H Lymphocytes # 0.7 L Monocytes # Sodium Chloride Carbon Dioxide BUN Creatinine Glucose POC Glucose (mg/dL) Total Bilirubin AST ALT Total Creatine Kinase CK-MB (CK-2) 12.3 H* Total Protein Urine Protein Urine Ketones 1+ H Urine Blood Ur Leukocyte Esterase Small H Urine WBC Amorphous Sediment Urine Bacteria Rare H Hyaline Casts Urine Mucus Rare H Ur Amphetamines Screen Urine Cocaine Screen - Diagnostic Findings Chest x-ray: image reviewed (No evidence of acute pulmonary process.) Assessment and Plan Assessment: Impression: 1 acute episode of shortness of breath most likely secondary to acute exacerbation of bronchial asthma, 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 2 acute rhabdomyolysis and acute kidney injury related to acute rhabdomyolysis. Etiology is unclear, possibly related to drug overdose, possibly flakka. 3 acute mental status change possibly related to flakka ingestion. Recommendation: Continue present supportive care measures, patient responded well to hydration, his renal functioning is significantly improved, his CPK is improving with hydration, patient could be considered for transfer out of the ICU to a regular medical floor, will continue to follow. Consider discharge planning in the next 24 hours. Time with Patient: Greater than 30
[2017-08-25 14:02] LABS: Acetaminophen <10.0 ug/mL; Salicylate <1.0 mg/dL
[2017-08-25 17:44] VITALS: BP 117/63; PULSE 69; RESP 15; TEMP 97.3
--- NOTE | 2017-08-25 18:09 | HP ---
HISTORY AND PHYSICAL DATE OF SERVICE: 08/24/17. CHIEF COMPLAINT: Confusion, agitation and possible rhabdomyolysis. HISTORY OF PRESENT ILLNESS: This is the first admission for this 37-year-old, white male. He is followed in the office for depression, hypertension and ADHD. He was brought to the emergency room extremely agitated, confused and combative. The workup revealed that his CK was very high and BUN and creatinine are elevated and it was thought that he may be going into rhabdomyolysis. He had to be restrained. There was thought that this may be related to ingestion or use of a drug or drugs, but he would not cooperate and give a urine specimen. REVIEW OF SYSTEMS: Could not be determined. The past medical history, family history personal social history reveal that he is ALLERGIC TO CODEINE. MEDICATIONS: 1. He is on Prozac 40 mg. 2. Adderall 20 mg twice a day. 3. Ibuprofen 800 q.i.d. p.r.n. 4. Lisinopril-hydrochlorothiazide 20-12.5 once a day. 5. Wellbutrin 150 twice a day. 6. Vitamin D. 7. Pepcid. FAMILY HISTORY: He has a family history of alcohol, domestic abuse. SOCIAL HISTORY: He does smoke. PHYSICAL EXAM: Blood pressure blood pressure is 145/105 with a pulse of 110 and respirations were 35. He is afebrile. GENERAL APPEARANCE: He appeared to be slender, well developed, well nourished, in no acute distress but he is very agitated. Skin was dry. Head ears, eyes, nose, mouth, and throat were normal. Neck veins not distended. Chest is clear. Cardiac exam is normal. The abdomen is soft, nontender. EXTREMITIES: Normal. IMPRESSION: 1. Sudden onset of agitation. 2. Dehydration. 3. Possible rhabdomyolysis. 4. Possible drug ingestion overdose with adverse effect. 5. Hypertension. 6. Attention-deficit/hyperactivity disorder. PLAN: 1. Bed rest. 2. Intensive management consult. 3. IV fluids. 4. P.r.n. sedation. YANE / ROSAS: [id number] /
--- NOTE | 2017-08-25 18:30 | PN ---
PROGRESS NOTE DATE OF SERVICE: 08/25/17. CHIEF COMPLAINT: Agitation and probable congestion, and overdose. HISTORY OF PRESENT ILLNESS: This gentleman is doing better. He is up and about. He is awake and alert. Vital signs are normal. PHYSICAL EXAM: CHEST: Clear. Cardiac exam is normal. The abdomen is soft, nontender. IMPRESSION: Agitation, confusion with delirium, etiology unknown. PLAN: Moved to telemetry. MMODL / IJN: [id number] /
--- NOTE | 2017-08-26 15:22 | DS ---
DISCHARGE SUMMARY He was in the ICU on April 01. CHIEF COMPLAINT: Agitation, and drug overdose and drug affect. HISTORY OF PRESENT ILLNESS AND PHYSICAL EXAM: Details of this man's history and physical can be found in the initial workup. LABORATORY STUDIES: While he was in a hospital he had laboratory studies, details which can be found in the laboratory section of his chart. COURSE IN HOSPITAL: After admission, he was placed in bedrest, started on intravenous fluids, and he was placed in ICU and monitored closely for vital signs, neurologic condition and mental status. The following morning he was awake and alert. He is stable and doing well. Then he signed himself out against medical advice on the evening of the sixth. He was given no discharge prescriptions and instructions or follow up appointment, etc. FINAL DIAGNOSES: 1. Drug ingestion and overdose. 2. Agitation and delirium. 3. Attention-deficit disorder. OPERATIONS: None. CONSULTATION: Intensive medicine. He is improved. MMSHARONDA / ROSAS: [id number] /
== END 2017-08-25 18:09 | disposition left against medical advice (07) | DRG 812 ==
LOC: EC 17:01 → 6ICU 21:46
PROVIDERS: ADMIT Family Medicine; ATTEND Family Medicine
DX: T50.901A Poisoning by unspecified drugs, medicaments and biological substances, accidental (unintentional), initial encounter (principal); N17.9 Acute kidney failure, unspecified; M62.82 Rhabdomyolysis; I95.9 Hypotension, unspecified; J45.901 Unspecified asthma with (acute) exacerbation; E86.0 Dehydration; I10 Essential (primary) hypertension; F90.9 Attention-deficit hyperactivity disorder, unspecified type; F17.200 Nicotine dependence, unspecified, uncomplicated; F14.10 Cocaine abuse, uncomplicated; R45.1 Restlessness and agitation; F11.10 Opioid abuse, uncomplicated; M62.830 Muscle spasm of back; F12.10 Cannabis abuse, uncomplicated; F32.9 Major depressive disorder, single episode, unspecified; F41.9 Anxiety disorder, unspecified; Z81.1 Family history of alcohol abuse and dependence; Z79.899 Other long term (current) drug therapy; Z86.14 Personal history of Methicillin resistant Staphylococcus aureus infection; Z82.49 Family history of ischemic heart disease and other diseases of the circulatory system; Z88.6 Allergy status to analgesic agent
CPT/HCPCS: 36415; 51702; 70450; 71010; 80053; 80306; 81001; 82550; 82553; 83520; 83735; 83880; 84100; 84484; 85025; 85379; 85610; 85730; 93005; 94644; 96361; 96372; 96374; 96375; 96376; 99291